=== PATIENT | female | born 1965 | race Caucasian/White ===

== ENCOUNTER 2017-05-19 09:00 | Day surgery (SDC) | payer OTHER ==
[~2017-05-19] VITALS: Ht 156.2 cm; Wt 74.5 kg
[~2017-05-19 09:00] MED LIST: KETO10 PO; [UNRECOGNIZED DRUG - OTHER] TOP
[2017-05-19] MEDS ORDERED: SODIUM CHLORIDE FLUSH PRN IV FLUSH (10:00)
[2017-05-19] MEDS ORDERED: CLOB-40 TOPICAL (10:07)
[2017-05-19] MEDS ORDERED: LEVO75TA3 PO (10:07)
[2017-05-19] MEDS ORDERED: PRIL10PO PO (10:07)
--- NOTE | 2017-05-19 10:22 | HHI.HP ---
History of Present Illness Chief Complaint: R posterior leg pain History of Present Illness 52 yo female, recently retired chief of police, who has R LE varicosities that are symptomatic in that they cause aches and pain after prolonged standing. Has worn compression. No DVT. No wound. Duplex showed competent SSV and a branch that fed into a cluster of varicosities. Past/Family/Social History Past Medical History Hypercholesterolemia, thyroid issues Social History retired chief of police Family History [place] Home Medications Reported Medications Clobetasol Topical (Temovate Topical) 0.05% Cream, 1 APPLIC TOPICAL BID, #30 GM 0 Refills 05/19/17 Levothyroxine (Levothyroxine) 75 Mcg Tab, 75 MCG PO DAILY for Thyroid, #30 TAB 0 Refills 05/19/17 Omeprazole Magnesium (Prilosec) 10 Mg Pow, 1 CAP PO DAILY 05/19/17 Coded Allergies: Sulfa (Sulfonamide Antibiotics) (Unverified Allergy, Severe, RASH, ITCHING , 04/27/17) morphine (Unverified Allergy, Intermediate, N/V, 04/27/17) codeine (Unverified Allergy, Mild, 04/27/17) N/V penicillin G (Unverified Allergy, Mild, 04/27/17) itch Review of Systems Constitutional: DENIES: Fever, Chills Cardiovascular: DENIES: Chest pain Physical Exam Neuro: alert, oriented, no distress HEENT: NC/AT; anicteric sclera Neck: no JVD Heart: reg rate Lungs: nonlabored Vascular: palpable pulses Extremities: R posterior calf with varicosities, no skin ulceration Caprini VTE Risk Assessment Caprini VTE Risk Assessment: No/Low Risk (score <= 1) Caprini Risk Assessment Model Point Value = 1 Point Value = 2 Point Value = 3 Point Value = 5 Age 41-60 Minor surgery BMI > 25 kg/m2 Swollen legs Varicose veins or History of unexplained or recurrent spontaneous Oral contraceptives or hormone replacement Sepsis (< 1 month) Serious lung disease, including pneumonia (< 1 month) Abnormal pulmonary function Acute myocardial infarction Congestive heart failure (< 1 month) History of inflammatory bowel disease Medical patient at bed rest Age 61-74 Arthroscopic surgery Major open surgery (> 45 min) Laparoscopic surgery (> 45 min) Malignancy Confined to bed (> 72 hours) Immobilizing plaster cast Central venous access Age >= 75 History of VTE Family history of VTE Factor V Leiden Prothrombin [id number] Lupus anticoagulant Anticardiolipin antibodies Elevated serum homocysteine Heparin-induced thrombocytopenia Other congenital or acquired thrombophilia Stroke (< 1 month) Elective arthroplasty Hip, pelvis, or leg fracture Acute spinal cord injury (< 1 month) Prophylaxis Regimen Total Risk Factor Score Risk Level Prophylaxis Regimen 0-1 Low Early ambulation 2 Moderate Order ONE of the following: *Sequential Compression Device (SCD) *Heparin 5000 units SQ BID 3-4 Higher Order ONE of the following medications: *Heparin 5000 units SQ TID *Enoxaparin/Lovenox 40 mg SQ daily (WT < 150 kg, CrCl > 30 mL/min) *Enoxaparin/Lovenox 30 mg SQ daily (WT < 150 kg, CrCl > 10-29 mL/min) *Enoxaparin/Lovenox 30 mg SQ BID (WT < 150 kg, CrCl > 30 mL/min) AND/OR *Sequential Compression Device (SCD) 5 or more Highest Order ONE of the following medications: *Heparin 5000 units SQ TID (Preferred with Epidurals) *Enoxaparin/Lovenox 40 mg SQ daily (WT < 150 kg, CrCl > 30 mL/min) *Enoxaparin/Lovenox 30 mg SQ daily (WT < 150 kg, CrCl > 10-29 mL/min) *Enoxaparin/Lovenox 30 mg SQ BID (WT < 150 kg, CrCl > 30 mL/min) AND *Sequential Compression Device (SCD) Assessment and Plan Plan R LE symptomatic varicosities Plan for stab phlebectomy Edmund Davenport MD May 19, 2017 10:22
[2017-05-19] MEDS ORDERED: MIDAZOLAM HCL 2 MG/2 ML VIAL ONE ×2 (10:38→10:56)
[2017-05-19] MEDS ORDERED: LEVOFLOXACIN 500 MG PREMIX INJ 100 ML IV ONE (10:38)
[2017-05-19] MEDS ORDERED: LIDOCAINE HCL 2% 50 ML VIAL ONE (10:41)
--- NOTE | 2017-05-19 11:30 | CATHPROC ---
ip.access HIS Report Study Information Admission Scheduled Start Study Start May 19 2017 9:00AM 05/19/2017 May 19 2017 10:34AM [place] [facility] Cath Endovascular Study Admit Source Facility Department Other [facility] - [facility] Consultant Physician and Clinical Staff Initial [employer] Bench Mechanic Eric Brewster,RN Recorder Chris Conklin,RT(R) Kerry BoboRT(R) (BS) Equipment Time Rnp Description Size Mfg Part Number Used/Scraped 10:36 [employer] PACK, COMMUNITY [employer]FFA[employer] MANAGER [employer] CFP *[id number] Used History: Current Medications Medication Dosage/Unit Route Frequency Last Date/Time Taken Synthroid History: Allergies Allergy Reaction Sulfa (Sulfonamide Antibiotics) RASH, ITCHING morphine N/V codeine penicillin G History: Risk Factors Family History of Hypertension Dyslipidemia Previous NM Previous Heart Failure Premature CAD No Yes No No No Prior Valve Prior PCI Prior CABG Surgery No No No Cerebrovascular Peripheral Artery Chronic Lung On Dialysis Diabetes Disease Disease Disease No No No No No History: Stress Tests Stress or Imaging Studies Performed No History: Other Current Smoker No Labs Hgb (g/dl) 11.60-17.00 Not Drawn Creatinine (mg/dl) 0.50-1.30 Not Drawn CPK-MB (ng/ML) 0.50-3.60 Not Drawn Medication Medication Total Dose (Bolus/Oral) Medication Total Dosage/Unit 1% XYLOCAINE 20 mL FENTANYL 75 mcg VERSED 3 mg Medications (Bolus/Oral) Medication Time Given Dosage/Unit Administered By Reason VERSED 05/19/2017 10:44:11 AM 2 mg Eric Brewster Patient arrived on 2 mg VERSED given by Eric Brewster RN in Left Antecubital via Peripheral IV. FENTANYL 05/19/2017 10:45:30 AM 50 mcg Eric Brewster Patient arrived on 50 mcg FENTANYL given by Eric Brewster RN via Peripheral IV. 1% XYLOCAINE 05/19/2017 10:51:02 AM 20 mL Patient arrived on 20 mL 1% XYLOCAINE via Subcutaneous. FENTANYL 05/19/2017 10:55:32 AM 25 mcg Eric Brewster Patient arrived on 25 mcg FENTANYL given by Eric Brewster, KOLBY in Left Antecubital via Peripheral IV. VERSED 05/19/2017 10:57:08 AM 1 mg Eric Brewster Patient arrived on 1 mg VERSED given by Eric Brewster, RN in Left Antecubital via Peripheral IV. Medication (Drip) Medication Time Given Dosage/Unit Concentration/Unit Diluent (ml) Solution IV Solutions 05/19/2017 10:36:20 AM 0 mL (IV) 500 NaCl .9 Patient arrived on IV Solutions in Left Antecubital via Peripheral IV. Pump/Drip Flow = 20 ml/hr usin g NaCl .9. LEVAQUIN 05/19/2017 10:40:27 AM 100 mL/hr 500 100 NaCl .9 Patient arrived on 100 mL/hr LEVAQUIN given by Eric Brewster, RN in Left Antecubital via Peripheral IV. Pump/Drip Flow = 0 ml/hr using NaCl .9 with a concentration of 500 in 100 ml. Initial Case Assessment Cardiovascular HR Rhythm NIBP Chest Pain 60 Sinus 139/80 0 Edema Present Skin color Skin None Normal Warm Neurological State Oriented to time-place- Alert Moves all extremities person Respiration - General Respiration Rate SpO2 (%) O2 (lpm) (B/min) 24 98 0 Final Case Assessment Cardiovascular HR Rhythm NIBP 75 Sinus 124/83 Edema Present Skin color Skin None Normal Warm Dry Neurological State Oriented to time-place- Alert Moves all extremities person Respiration - General Respiration Rate SpO2 (%) O2 (lpm) (B/min) 25 96 0 Chronological Log Time Study Chronological Log 10:28:29 Patient arrived via Bed. 10:30:00 MD arrived. 10:34:35 Patient Name, D.O.B, / Armband Verified By R.N. 10:34:36 Consent signed by the physician and the patient and verified by the [facility] Consult[facility] staff. 10:34:36 Pre-op and post- op instructions given; patient acknowledges understanding of instruction s. 10:34:38 Verbal Stimulation=2 Physical Stimulation=2 Airway=2 Respiration=2 TOTAL=8. (0=absent, 1= limited, 2=present) 10:34:43 Presedation assessment performed by Wireless Consultant RN. 10:34:45 Patient has been NPO for More than 6Hrs. 10:34:46 Skin Breakdown-none per patient. 10:36:06 Patient Warmer Placed on the Table. 10:36:08 [place]onne Prominences Protected 10:36:09 A # 20 IV was noted in the Antecubital (left). Grade = 0 10:36:20 Patient arrived on IV Solutions in Left Antecubital via Peripheral IV. Pump/Drip Flow = 20 ml/hr using NaCl .9. 10:36:42 History and physical on the chart or being dictated. Vitals capture started with the following parameters, Patient=Adult, Interval=5 min, Initial Pr asodlx=312 mmHg, 10:36:50 Deflation Rate=5 mmHg 10:37:30 HR=60 bpm, SACL=370/80 mmhg, SpO2=99.0 %, Resp=12 B/min, Pain=0, Cecilia=10, [place]=2 Assessment: Initial Case, HR=60 BPM, Rhythm=Sinus, YRGG=389/80 mmhg, Chest Pain=0, Edema=None, Color=Normal, Skin = Warm 10:38:18 Neurological: State=Alert, Ox3, SALCEDO Respiration: Resp=24 B/min, SpO2=98 %, O2=0 lpm Patient arrived on 100 mL/hr LEVAQUIN given by Eric Brewster RN in Left Antecubital via Perip heral IV. Pump/Drip Flow 10:40:27 = 0 ml/hr using NaCl .9 with a concentration of 500 in 100 ml. 10:40:39 Right Leg prepped with 2% chlorhexidine, and with a 3 min. waiting time. 10:42:25 HR=63 bpm, BORN=852/87 mmhg, SpO2=98.0 %, Resp=19 B/min, Pain=0, Cecilia=10, [place]=2 10:44:11 Patient arrived on 2 mg VERSED given by Eric Brewster RN in Left Antecubital via Peripher al IV. 10:45:30 Patient arrived on 50 mcg FENTANYL given by Eric Brewster RN via Peripheral IV. 10:47:26 HR=70 bpm, SYQD=274/83 mmhg, SpO2=93.0 %, Resp=40 B/min, Pain=0, Cecilia=10, [place]=2 Time Out. Correct patient, correct procedure,correct physician, ,power injector loaded or not l oaded with contrast with 10:51:00 surgical team present. Time Out Concurred by MD, individual staff and APPARATUS LINEMAN in procedure 10:51:02 Patient arrived on 20 mL 1% XYLOCAINE via Subcutaneous. 10:51:10 Case Start 10:52:23 HR=71 bpm, AZWC=737/69 mmhg, SpO2=94.0 %, Resp=44 B/min, Pain=0, Cecilia=10, [place]=2 10:54:37 Multiple Phlebectomys performed. 10:55:32 Patient arrived on 25 mcg FENTANYL given by Eric Brewster RN in Left Antecubital via Claire pheral IV. 10:57:08 Patient arrived on 1 mg VERSED given by Erci Brewster RN in Left Antecubital via Peripher al IV. 10:57:22 HR=64 bpm, NOUH=673/77 mmhg, SpO2=94.0 %, Resp=26 B/min, Pain=0, Cecilia=10, [place]=2 11:02:25 HR=72 bpm, GBSM=667/70 mmhg, SpO2=94.0 %, Resp=27 B/min, Pain=0, Cecilia=10, [place]=2 Multiple incisions sutured close. 11:05:28 11:08:01 HR=69 bpm, HVWE=962/66 mmhg, SpO2=94.0 %, Resp=21 B/min, Pain=0, Cecilia=10, [place]=2 11:08:14 Reference ECG taken 11:12:25 HR=71 bpm, BWQC=490/67 mmhg, SpO2=94.0 %, Resp=26 B/min, Pain=0, Cecilia=10, [place]=2 11:15:11 Case End 11:18:10 HR=73 bpm, SQTG=411/78 mmhg, SpO2=96.0 %, Resp=29 B/min, Pain=0, Cecilia=10, [place]=2 11:18:13 Sterile dressing applied to site 11:18:19 No case complications noted. 11:23:52 HR=75 bpm, NCGK=656/83 mmhg, SpO2=96.0 %, Resp=26 B/min, Pain=0, Cecilia=10, [place]=2 Assessment: Final Case, HR=75 BPM, Rhythm=Sinus, UIEA=597/83 mmhg, Edema=None, Color=Normal, Sk in = Warm, Dry 11:23:59 Neurological: State=Alert, Ox3, [place] Respiration: Resp=25 B/min, SpO2=96 %, O2=0 lpm 11:24:31 Vitals capture stopped. 11:25:09 Bedside Report will be given. End Study - Patient Disposition Complications Not selected
--- NOTE | 2017-05-19 11:40 | HHI.PR ---
Immediate Post Op Note Procedure Date: May 19, 2017 Pre Op Diagnosis: symptomatic R LE varicosities Post Op Diagnosis: same Surgeon: Edmund Davenport Behavioral Science Chair(s): Juan Jackson MD Procedure: R LE stab phlebectomy (11 incisions) Findings: friable veins Complications: none Specimen(s) removed: veins, not for pathology Estimated blood loss: 10mL Anesthesia: MAC Drains: None Patient to: Other (DOCU) Date/Time of Procedure: SEE SURGICAL CARE RECORD Edmund Davenport MD May 19, 2017 11:40
--- NOTE | 2017-05-19 12:23 | MP ---
cc: EDMUND DAVENPORT MD DATE OF SURGERY 05/19/2017 PREOPERATIVE DIAGNOSIS Right lower extremity imaging varicose veins POSTOPERATIVE DIAGNOSIS Right lower extremity imaging varicose veins PROCEDURE Right lower extremity stab phlebectomy (11 incisions) ATTENDING SURGEON Edmund Davenport MD ANESTHESIA Local with sedation INDICATIONS Ms. Ojeda is a 52-year-old lady with symptomatic venous insufficiency who has failed compression therapy. She has failed compression therapy and has does not an truncal insufficiency. She is offered stab phlebectomy. PROCEDURE After informed consent was obtained, the patient was taken to the operating room, placed supine on operating table, appropriate time-out was taken to assure operative site and planned procedure. 500 mg of Levaquin was administered prior to the skin incision and will be discontinued after a single preoperative dosing. Levaquin was chosen because of the patient's penicillin allergy. Everyone in the room agreed with the time out and we proceeded. She was placed in the prone position and her leg was prepped and draped and a series of incisions made with an 11 blade right up the course of the vein that was preoperatively marked. The vein was phlebectomized without difficulty. Hemostasis was achieved with manual pressure and the wounds were closed with 5-0 chromic suture. The leg was then wrapped in a Kerlix and Berhane bandage. The patient was transferred to the recovery room in stable condition. There were no complications. I was present and scrubbed for this procedure. Edmund Davenport MD RJF/DJL /11:42 AM /11:57 AM
[2017-05-19] MEDS ORDERED: SODIUM CHLORIDE FLUSH BID IV FLUSH SCH (21:00)
== END 2017-05-19 14:20 | disposition home or self-care (01) ==
LOC: HDOC 09:00 → HDIC 09:01 → HDOC 14:20
PROVIDERS: ATTEND Surgery
DX: I83.91 Asymptomatic varicose veins of right lower extremity (principal); R60.0 Localized edema; E78.00 Pure hypercholesterolemia, unspecified; E03.9 Hypothyroidism, unspecified; Z79.899 Other long term (current) drug therapy
CPT/HCPCS: 37765; J1956; J2250; J3010